=== PATIENT | female | born 1935 | race Caucasian/White ===

== ENCOUNTER 2016-12-02 14:47 | Inpatient (IN) ==
[2016-12-02] MEDS ORDERED: ALBUTEROL/IPRATROPIUM 3 ML NEB RESP TX STA (15:05)
--- NOTE | 2016-12-02 15:33 | XRay Report ---
Referring Physician: Michael Locke Exam: XR chest 1V portable Date: December 02, 2016 at 3:12 PM Reason: Shortness of breath Comparison: Chest one view portable September 02, 2016 Findings: The cardiac silhouette is again enlarged, and there is prominent calcified plaque at the aortic arch. The interstitial markings are diffusely prominent bilaterally, and there are opacities within the right mid and lower lung zones and within the left lower lung zone. This is concerning for pulmonary edema and atelectasis, but there could also be pneumonia. No pneumothorax is identified, but there is bilateral pleural fluid, which is likely mild on the left and moderate on the right. No acute osseous process is seen. Surgical clips are noted within the left upper abdomen. Impression: 1. Cardiomegaly. 2. The interstitial markings are diffusely prominent bilaterally, and there are opacities within both lungs, right greater than left. This is concerning for pulmonary edema and atelectasis, but there could also be pneumonia. 2. Bilateral pleural fluid, right greater than left. PROCEDURE INTERPRETED AT [facility] DEPARTMENT OF RADIOLOGY Final Report Signed by: Dr. Jeni Melton
[2016-12-02 15:37] LABS: Basophils # 0.1 10*3/uL (0.0-0.2); Basophils % 1.2 % (0.0-0.8); Eosinophils # 0.1 10*3/uL (0.0-0.87); Eosinophils % 1.7 % (0.00-10.9); Hematocrit 43.7 VOL% (35.7-47.0); Hemoglobin 14.6 GM/DL (12.0-16.0); Immature Granulocytes % 0.2 %; Immature Granulocytes Absolute 0.01 #; Lymphocytes # 2.2 10*3/uL (1.4-4.0); Lymphocytes % 37.7 % (21.3-54.2); Mean Corpuscular HGB Conc 33.4 GM/DL (32-36); Mean Corpuscular Hemoglobin 33 PG (27-34); Mean Corpuscular Volume 97.3 FL (87-102); Mean Platelet Volume 10.3 FL (9.6-12.0); Monocytes # 0.5 10*3/uL (0.11-0.8); Monocytes % 8.3 % (1.7-12.7); Neutrophils % 50.9 % (38.7-73.9); Platelet Count 181 T/CUMM (130-400); Red Blood Count 4.49 MC/CUMM (3.8-5.5); White Blood Count 5.8 T/CUMM (4-12)
[2016-12-02 16:02] LABS: Alanine Aminotransferase 13 U/L (13-56); Albumin 3.5 G/DL (3.4-5.0); Alkaline Phosphatase 51 U/L (45-117); Aspartate Amino Transferase 13 U/L (0-37); Blood Urea Nitrogen 12 MG/DL (7-18); Calcium 9.1 MG/DL (8.5-10.1); Glucose 90 MG/DL (74-106); Magnesium 1.9 MG/DL (1.8-2.4); Potassium 4.3 MMOL/L (3.5-5.1); Sodium 143 MMOL/L (136-145); Total Protein 6.2 G/DL (6.4-8.3); Troponin I Only < 0.015 NG/ML (0.00-0.045)
--- NOTE | 2016-12-02 16:26 | Emergency Department Note ---
Isaac Mack Gwan, am scribing for, and in the presence of, Michael Locke MD 15:13. Chucky Mack Phillip K, MD, personally performed the services described in this documentation, ascribed by Lisandra Gray in my presence, and it is both accurate and complete 626 . Arrival - Arrival Chief Complaint: Shortness of Breath Stated Complaint: MAY HAVE PNEUMONIA ED Nursing Triage Note: C/O SOB AND COUGING WHEN PT EXERTS HERSELF WITH ONSET ONE WEEK AGO. Mode of Arrival: Ambulatory Limitations: No Limitations Source: Patient, Family (Son ), Old Records Reviewed, RN Notes Reviewed - History of Present Illness HPI Narrative: Patient is a 80 y/o white female who presents to the ED with a c/o SOB and dry cough with an onset several months ago. Patient's son stated that pt was hospitalized in 07/2016 for several days due to pneumonia ans since her discharge she has been having SOB. Within the last 2 weeks, her SOB has worsened with minimal exertion, subjective fever and edema to bilateral LE prompting her visit to the ED for further evaluation. At time of triage, pt's temperature was 98.1. Son confirmed that pt is on home O2 and that she has a rescue inhaler. Son denies that pt has a nebulizer. Patient is followed by Dr. Stallings. No other problems/complaints reported in ED. Onset (ago): week(s) Consistency: constant Severity: moderate Date of Last Menstrual Period: HYST Allergies/Adverse Reactions: Allergies Allergy/AdvReac Type Severity Reaction Status Date / Time ampicillin Allergy Unknown/Unable Verified 08/19/16 18:16 to obtain Penicillins Allergy Unknown/Unable Verified 08/19/16 18:16 to obtain Home Medications: Home Medications Medication Instructions Recorded Confirmed Type Citalopram [CeleXA] 20 mg PO DAILY 08/20/16 12/02/16 History Methenamine Hippurate [Hiprex] 1 gm PO BID 08/20/16 12/02/16 History Apixaban [Eliquis] 2.5 mg PO BID 12/02/16 12/02/16 History Meclizine HCl 25 mg PO Q8H PRN 12/02/16 12/02/16 History Nebivolol HCl [Bystolic] 2.5 mg PO DAILY 12/02/16 12/02/16 History Review of System - Review of System 12 point system: reviewed and no additional remarkable complaints except as stated - Review of System Constitutional: Present: as per HPI, fever. Absent: chills, diaphoresis Eyes: Absent: discharge Head/Ears/Nose/Throat: Absent: earache Respiratory: Present: as per HPI, cough, other (shortness of breathe ) Cardiovascular: Absent: chest pain Gastrointestinal: Absent: abdominal pain, nausea, vomiting, diarrhea Genitourinary female: Absent: dysuria Musculoskeletal: Absent: arm pain, back pain, leg pain, neck pain Skin: Absent: rash, lesions Neurological: Absent: weakness Psychiatric: Absent: anxiety Medical,Surgical,& Family Hx - Medical History Cardio: History of: Hypertension Respiratory: History of: COPD, Obstructive Sleep Apnea Genitourinary: History of: Recurring Urinary Tract Infections Gastrointestinal: History of: GI Problems (chronic diarhhea) Reproductive: History of: Ovarian Cysts (reports removed in the past) - Surgical History Abdominal Surgeries: Surgical HX of: Abdominal Surgery (reports a tumor removed in the past) Reproductive Surgeries: Surgical HX of;: Hysterectomy Orthopedic Surgeries: Surgical HX of;: Total Knee Replacement (right) - Family History Family History: Reports;: Family Cancer (sisters- breast and ovarian cancer), Family Heart Disease (mother), Family Hypertension (mother), Family Stroke ( father) - Social History Smoking Status: Never smoker Frequency of Alcohol Use: None Type of Drug Use: None Exam Vital Signs: Vital Signs Temperature 98.1 F 12/02/16 16:18 Pulse Rate 76 12/02/16 16:18 Respiratory Rate 22 12/02/16 16:18 Blood Pressure 131/78 12/02/16 16:18 O2 Sat by Pulse Oximetry 94 L 12/02/16 14:50 - General General appearance: alert, in no apparent distress - Head Head exam: Present: atraumatic, normocephalic - Eye Eye exam: Present: normal appearance, PERRL, EOMI - ENT ENT exam: Present: normal oropharynx, mucous membranes moist, TM's normal bilaterally, normal external ear exam - Neck Neck exam: Present: full ROM, trachea midline. Absent: tenderness - Chest Chest inspection: Present: symmetric chest wall rise. Absent: tenderness - Respiratory Respiratory exam: Present: rales, other (decreased breathe sounds right base ) - Cardiovascular Cardiovascular exam: Present: regular rate, normal rhythm, normal heart sounds. Absent: murmur - Abdominal Exam Abdominal exam: Present: soft, normal bowel sounds. Absent: distention, tenderness - Extremities Exam Extremities exam: Present: full ROM, other (Trace edema bialteral LE) - Back Exam Back exam: Present: full ROM. Absent: tenderness - Neurological Exam Neurological exam: Present: alert, oriented X3, CN II-XII intact. Absent: motor sensory deficit - Psychiatric Psychiatric exam: Present: normal affect, normal mood - Skin Skin exam: Present: warm, dry, intact, normal color Course Course Narrative: Patient discussed with Dr. Stallings Results - Labs CBC & BMP: 12/02/16 15:18 12/02/16 15:18 Lab Results: I have reviewed the patients labs Labs: Laboratory Tests 12/02/16 12/02/16 15:18 15:18 WBC 5.8 RBC 4.49 Hgb 14.6 Hct 43.7 Plt Count 181 Baso % (Auto) 1.2 H Sodium 143 Potassium 4.3 Chloride 106 Carbon Dioxide 30 BUN 12 Creatinine 0.90 Total Bilirubin 1.30 H Total Protein 6.2 L - Diagnostic Findings Procedure: Chest x-ray: report reviewed by me (1. Cardiomegaly. 2. The interstitial markings are diffusely prominient bilaterally and there are opacities within both lungs, right greater than left. This is concerning for pulmonary edema and atelectasis, but there could also be pnuemonia. 2. Bilateral pleural fluid, right greater than left. ) Disposition Clinical Impression: Pneumonia right lower lobe, Pleural effusion, right, Possible congestive heart failure Case discussed with: patient Disposition: Still a Patient Condition: Guarded Additional Instructions: Admit to Dr. Stallings
[2016-12-02] MEDS ORDERED: ACETAMINOPHEN 325 MG TABLET PO PRN (16:44)
[2016-12-02] MEDS ORDERED: ONDANSETRON 4 MG/2 ML VIAL IV PRN (16:44)
[2016-12-02] MEDS ORDERED: ALBUTEROL/IPRATROPIUM 3 ML NEB RESP TX SCH (17:00)
[2016-12-02] MEDS ORDERED: LEVOFLOXACIN INJ 100 ML IV ONE (17:54)
[2016-12-02] MEDS: LEVOFLOXACIN INJ 500 MG in PREMIX 1 EACH IV SCH (17:57)
[2016-12-02] MEDS ORDERED: MECLIZINE 25 MG TABLET PO PRN (18:54)
[2016-12-02] MEDS ORDERED: methylPREDNISolone SOD SUC 40 MG/1 ML VIAL ONE (19:11)
[2016-12-02] MEDS: methylPREDNISolone SOD SUC 40 MG/1 ML VIAL IV SCH (19:15)
[2016-12-02] MEDS: ALBUTEROL/IPRATROPIUM 3 ML NEB RESP TX SCH (20:21)
[2016-12-02] MEDS: METHENAMINE HIPPURATE 1 GM TABLET PO SCH (20:52)
[2016-12-02] MEDS: APIXABAN 2.5 MG TABLET PO SCH (20:52)
[2016-12-02] MEDS: DESITIN 4OZ/NYSTATIN 15 GRAM MIXTURE PASTE TOP SCH (20:53)
[2016-12-02] MEDS: DOCUSATE SODIUM 100 MG CAPSULE PO SCH (20:53)
[2016-12-02] MEDS ORDERED: ENOXAPARIN 30 MG/0.3 ML SYRINGE SUBCUT SCH (21:00)
--- NOTE | 2016-12-02 21:46 | Family Practice History&Phys ---
Assessment and Plan (1) Cardiomegaly Status: Acute Assessment and plan: 12/02/2016 we will go ahead and get cardiology on board she has had this episode of shortness of breath and looks like she is in congestive heart failure to me is supposed to sarahi pneumonia. (Have a normal white count) Current Visit: Yes (2) Pleural effusion, right Status: Acute Assessment and plan: 12/02/2016: We will give her 20 mg Lasix in the morning early. Current Visit: Yes (3) COPD (chronic obstructive pulmonary disease) Status: Acute Assessment and plan: 12/02/2016: We are going to keep her on nebulizers and initiate some steroids low -dose. Current Visit: No (4) Right lower lobe pneumonia Status: Acute Assessment and plan: 12/02/2016: Although there is some right lower lobe haziness believe this is more associated with congestive heart failure Current Visit: No (5) UTI (urinary tract infection) Status: Acute Assessment and plan: 12/02/2016: We are going to start on Levaquin for presumptive pneumonia at this time this should cover UTI Current Visit: No History of Present Illness Chief complaint: Shortness of breath, fatigue History of present illness: Ms. Belle is a 80 year old female A primary patient of Dr. Eladio Stallings. Came into the emergency room with shortness of breath which started yesterday afternoon but got a little worse today. She was recently seen and admitted in the hospital several weeks ago with pneumonia. She also had cardiomegaly at that time. Today chest x-ray revealed a right lower lobe infiltrate/pulmonary edema with bilateral small pleural effusions. She has extremely large cardiomegaly on a portable chest x- ray. I do not see evidence that she has had an echocardiogram in the past and will plan 1 1 of these. She does have a history of COPD and is a remote smoker but stopped approximately 30 years ago. At this time she is mildly short of breath but oxygen is helping significantly. She is in no acute distress and denies any sarahi chest pain. Her BNP is slightly elevated at 555. Is admitted and will get cardiology consult in the morning Home Medications Medication Instructions Recorded Confirmed Type Citalopram [CeleXA] 20 mg PO DAILY 08/20/16 12/02/16 History Methenamine Hippurate [Hiprex] 1 gm PO BID 03/01/17 06/13/17 History Apixaban [Eliquis] 2.5 mg PO BID 12/02/16 12/02/16 History Meclizine HCl 25 mg PO Q8H PRN 12/02/16 12/02/16 History Nebivolol HCl [Bystolic] 2.5 mg PO DAILY 12/02/16 12/02/16 History Allergies Allergy/AdvReac Type Severity Reaction Status Date / Time ampicillin Allergy Unknown/Unable Verified 08/19/16 18:16 to obtain Penicillins Allergy Unknown/Unable Verified 08/19/16 18:16 to obtain 12 point system: reviewed and no additional remarkable complaints except as stated (No blurred vision or epic stasis. She denies any leg pain, hemoptysis or any abdominal pain.) Medical,Surgical,& Family Hx - Medical History Cardio: History of: Cardiac Dysrhythmia (AFIB), Hypertension Respiratory: History of: COPD, Obstructive Sleep Apnea Genitourinary: History of: Recurring Urinary Tract Infections Gastrointestinal: History of: GI Problems (chronic diarhhea) Reproductive: History of: Ovarian Cysts (reports removed in the past) - Surgical History Abdominal Surgeries: Surgical HX of: Abdominal Surgery (reports a tumor removed in the past) Reproductive Surgeries: Surgical HX of;: Hysterectomy Orthopedic Surgeries: Surgical HX of;: Total Knee Replacement (right) - Family History Family History: Reports;: Family Cancer (sisters- breast and ovarian cancer), Family Heart Disease (mother), Family Hypertension (mother), Family Stroke ( father) - Social History Smoking Status: Never smoker Frequency of Alcohol Use: None Type of Drug Use: None Exam - Constitutional Vitals: Period Temp Pulse Resp BP Sys/Jalloh Pulse Ox Last 24 Hr 96.0 F-98.1 F 68-81 17-22 127-131/73-78 80-100 Exam: Generally a very pleasant lady she is in no acute respiratory distress at this time is able to verbalize without difficulty. HEENT pupils are equally reactive to light neck is supple trachea midline Cardiovascular rate is slightly irregular there is a 1/6 systolic ejection murmur. Lungs basilar rales. No acute rhonchi however there are a few areas of wheezes Abdomen soft nondistended Extremities no clubbing cyanosis or edema and she has good bilateral pedal pulses Neurologically fully intact Results - Labs CBC & BMP: 12/02/16 15:18 12/02/16 15:18
[2016-12-03] MEDS: ALBUTEROL/IPRATROPIUM 3 ML NEB RESP TX SCH ×4 (00:21→19:40)
[2016-12-03] MEDS ORDERED: FUROSEMIDE 20 MG/2 ML VIAL IV ONE (05:00)
[2016-12-03] MEDS: methylPREDNISolone SOD SUC 40 MG/1 ML VIAL IV SCH ×3 (05:16→21:17)
[2016-12-03] MEDS ORDERED: FUROSEMIDE 20 MG TABLET PO ONE (08:59)
[2016-12-03] MEDS ORDERED: NON-FORMULARY MEDICATION (Nebivolol Hcl [Bystolic] 2.5 MG) PO SCH (09:00)
[2016-12-03] MEDS ORDERED: CITALOPRAM 20 MG TABLET PO SCH (09:00)
[2016-12-03] MEDS: CITALOPRAM 20 MG TABLET PO SCH (09:02)
[2016-12-03] MEDS: NEBIVOLOL 5 MG TABLET PO SCH (09:02)
[2016-12-03] MEDS: PANTOPRAZOLE 40 MG TABLET PO SCH (09:02)
[2016-12-03] MEDS: DESITIN 4OZ/NYSTATIN 15 GRAM MIXTURE PASTE TOP SCH ×2 (09:02→21:21)
[2016-12-03] MEDS: DOCUSATE SODIUM 100 MG CAPSULE PO SCH ×2 (09:02→21:17)
[2016-12-03] MEDS: APIXABAN 2.5 MG TABLET PO SCH ×2 (09:02→21:17)
[2016-12-03] MEDS: METHENAMINE HIPPURATE 1 GM TABLET PO SCH ×2 (09:02→21:17)
--- NOTE | 2016-12-03 15:28 | ECHO Report ---
Porsche Belle Exam Date: 12/03/2016 09:15 Referring Physician: Technologist: makayla Krishnamurthy ARDMS, RVT Age: 80 Ht (in): 65 Wt (lb): 148 Gender: F Exam Location: [facility] Echo Indications: Shortness of breath, Cardiomegaly, Pneumonia, UTI, CHF, Pleural effusion, not elsewhere classified, COPD BP: 112 / 74 HR: 81 Rhythm: Sinus Technical Quality: Fair IMPRESSIONS 1. Left ventricle is normal size and systolic function with an ejection fraction of 55%. There is mild concentric left ventricular hypertrophy and at least some element of diastolic dysfunction present. 2. Right ventricle, right atrium and left atrium are moderately severely dilated. 3. Mitral valve is somewhat thickened with mitral annular calcification. Moderate to severe mitral regurgitation is present. 4. Sclerotic aortic valve without evidence for significant stenosis, mild regurgitation is present. 5. Moderate to severe tricuspid valve regurgitation. 6. Moderate to severely elevated right-sided pressures. MEASUREMENTS (Male / Female) Normal Values 2D ECHO LV Diastolic Diameter PLAX 3.9 cm 4.2 - 5.9 / 3.9 - 5.3 cm LV Systolic Diameter PLAX 3.0 cm LV Fractional Shortening PLAX 23.8 % IVS Diastolic Thickness 1.3 cm 0.6 - 1.0 / 0.6 - 0.9 cm LVPW Diastolic Thickness 1.3 cm 0.6 - 1.0 / 0.6 - 0.9 cm RV Internal Dim ED PLAX 4.6 cm Aortic Root Diameter 3.7 cm LA Systolic Diameter LX 5.8 cm 3.0 - 4.0 / 2.7 - 3.8 cm DOPPLER TR Peak Velocity 358.0 cm/s TR Peak Gradient 51.3 mmHg FINDINGS Left Ventricle Normal left ventricular cavity size. Mild left ventricular hypertrophy. Left ventricular ejection fraction is estimated at 55%. Probably diastolic dysfunction present. Right Ventricle Severely increased right ventricular size. Right Atrium Severely increased right atrial size. Left Atrium Severely increased left atrial size. Mitral Valve Mildly thickened mitral valve with mitral annular calcification especially posteriorly. Moderate possibly severe mitral valve regurgitation. Aortic Valve Aortic valve tricuspid structure with sclerosis without stenosis. Mild aortic valve regurgitation. Tricuspid Valve Morphologically normal tricuspid valve. Moderate to severe tricuspid valve regurgitation. Tricuspid regurgitation velocities suggest a PAP of 61 mmHg. Pulmonic Valve Morphologically normal pulmonic valve without significant stenosis. There is no pulmonic regurgitation. Pericardium Normal pericardium without effusion. Aorta Normal ascending aorta dimension. Flavio Leija MD (Electronically Signed) Final Date: 03 December 2016 15:27
--- NOTE | 2016-12-03 16:00 | Cardiology Consult Note ---
I, Nina Mckeon RN, am scribing for, and in the presence of, Flavio Leija MD 15:52. Assessment and Plan - Time spent with patient Time spent with patient: Greater than 30 minutes (Due to assessment, planning, documentation, medication review) (1) Congestive heart failure Status: Acute Assessment and plan: I think there is some chronic element that has been progressive. The patient's chest x-rays reveal progressive right pleural effusion. Current Visit: Yes (2) Cardiomegaly Status: Chronic Assessment and plan: This is secondary to right atrial, left atrial and right ventricular enlargement. Current Visit: Yes (3) Right lower lobe pneumonia Status: Acute Assessment and plan: She has been initiated on treatment for pneumonia by primary service. Question how much of this is from her heart disease versus true pneumonia. Current Visit: No (4) Pleural effusion, right Status: Acute Assessment and plan: Per chest x-ray, this is mild to moderate. This is progressive since chest x- rays earlier this year. Current Visit: Yes (5) Hypertension Status: Chronic Assessment and plan: Overall, pressures are well controlled at this time. Continue current regimen. Current Visit: Yes (6) History of pulmonary embolus (PE) Status: Chronic Assessment and plan: History of PE in the remote past, 2004. CT of the chest in August for shortness of breath and chest pain with no definitive pulmonary embolus. CT of chest did show bullous emphysema with small to moderate right pleural effusion and small left pleural effusion. Current Visit: Yes (7) Atrial fibrillation Status: Chronic Assessment and plan: Apparently new onset in August 2016. She is anticoagulated for stroke prevention with low-dose Eliquis. Need ECG Current Visit: Yes (8) COPD (chronic obstructive pulmonary disease) Status: Chronic Assessment and plan: This appears to be stable at this time. Patient does use continuous O2 at home. Current Visit: No (9) Nonrheumatic mitral valve regurgitation Status: Chronic Assessment and plan: This is moderate to severe and certainly may be contributing to her other clinical findings. Current Visit: Yes (10) Nonrheumatic tricuspid valve regurgitation Status: Acute Assessment and plan: This is moderate to severe. Current Visit: Yes (11) Pulmonary hypertension Status: Acute Assessment and plan: This is moderate to severe. This may be secondary valve disease but she has a history of have some chronic lung disease. Current Visit: Yes History of Present Illness - Data of Consult Patient: known to practice within the last 3 years Consult date: 12/03/16 Requesting Physician: Lefty Adams Primary care physician: Eladio Stallings - Consult Narrative Reason for consult: CHF, cardiomegaly History of present illness: PRIMARY CHEMICAL INSTRUMENTATION OFFICER: DR. MOY Ms. Belle is a 80 year old white female with risk factors significant for: Age, hypertension, sedentary lifestyle, family history of CAD, and she is a former smoker. Past medical history includes COPD, recurrent UTI, and she was recently diagnosed with atrial fibrillation in August 2016 during hospital admission to [facility] for pneumonia when she presented with atypical chest pain. She also has a history of pulmonary embolus in 2004 at which time she was started on Coumadin, but Coumadin was discontinued in 2012 after a fall and reported intracerebral hemorrhage. She was last seen by Dr. Marks as outpatient at [facility] clinic on November 10 for routine follow-up. She is chronically dyspneic on exertion, but this had not recently worsened in severity. She does use continuous oxygen at home, and she was complaining of some vertigo at the time as she had recently run out of oxygen for a brief period. Patient was not having any chest pain or tightness, orthopnea, PND, lower extremity edema. 2D echocardiogram in August 2016 revealed LV ejection fraction of 65%, mild to moderate LVH, mild MR and TR with PA pressure 39 mmHg. At follow-up visit in clinic, patient was having no bleeding problems on low-dose Eliquis. Patient presented to [facility] ED on the afternoon of December 02 with complaints of shortness of breath and a dry "hacking" cough with onset 6 months ago. Chest x-ray revealed cardiomegaly, bilateral and diffuse interstitial markings within both lungs, with the right greater than the left, and was concerning for pulmonary edema/atelectasis versus pneumonia. Also has bilateral pleural effusion slightly greater on the right than the left. Patient has been admitted to [facility] floor for treatment of right lower lobe pneumonia, right pleural effusion, and cardiology has now been asked to see for possible CHF. Patient reports that over the past week, her dyspnea on exertion has worsened with minimal activity. She reports she also noticed some increasing edema to her bilateral lower extremities with the left greater than the right, and this prompted her visit for further evaluation. She tells me that it is a short distance between her kitchen and living room, and ambulating from one room to another recently, she is easily extremely fatigued and is requiring increased rest breaks. She uses a walker to ambulate. Denies experiencing any chest pain or tightness with this. Denies diaphoresis, nausea or vomiting, or other anginal complaint. Admits nonproductive cough, subjective fever. No chills, abdominal pain, change in bowel habit, bright red bleeding, or dark stool. No hemoptysis, hematuria, epistaxis. During exam, she is not having any chest pain or shortness of breath, and does not appear to be in any acute distress. Her son is present at bedside with her. BP 115/66. Heart rate 80s and irregular. Supplemental oxygen via nasal cannula 2L/NC with oxygen saturation levels mid to upper 90s. Labs reviewed. WBC 5800. H&H stable 14.6/43.7. Potassium 4.3. Magnesium 1.9. Troponin level normal. Mildly elevated BNP 555. Echocardiogram reveals the left ventricular ejection fraction to be normal. There is moderate to severe tricuspid and mitral valve regurgitation. There is significant enlargement of the left atrium, right atrium and right ventricle. There is sclerotic aortic valve but without significant hemodynamic abnormalities. In comparison to echocardiogram carried out August 2016 patient had what is defined is less mitral valve and tricuspid valve regurgitation but on review there was significant at that time. It should be noted this patient now has 2 charts. We will need to have this blended. In review of the patient's chest x-rays over the last few months she has had some progressive right pleural effusion. CC: Lefty Adams, DO - Home Medications and Allergies Home Medications: Home Medications Medication Instructions Recorded Confirmed Type Citalopram [CeleXA] 20 mg PO DAILY 08/20/16 12/02/16 History Methenamine Hippurate [Hiprex] 1 gm PO BID 08/20/16 12/02/16 History Apixaban [Eliquis] 2.5 mg PO BID 12/02/16 12/02/16 History Meclizine HCl 25 mg PO Q8H PRN 12/02/16 12/02/16 History Nebivolol HCl [Bystolic] 2.5 mg PO DAILY 12/02/16 12/02/16 History Allergies/Adverse Reactions: Allergies Allergy/AdvReac Type Severity Reaction Status Date / Time ampicillin Allergy Unknown/Unable Verified 08/19/16 18:16 to obtain Penicillins Allergy Unknown/Unable Verified 08/19/16 18:16 to obtain - Constitutional Constitutional: Present: fatigue, weakness. Absent: fever(s), frequent falls, weight gain, weight loss - EENT Eyes: Absent: blurry vision, loss of vision Ears: Present: decreased hearing Nose, mouth and throat: Absent: dysphagia, nasal congestion, neck pain, sinus pressure, throat swelling - Cardiovascular Cardiovascular: Present: dyspnea on exertion. Absent: chest pain at rest, chest pain with activity, dyspnea, edema, radiating jaw, neck or arm pain, lightheadedness, orthopnea, palpitations, PND - Respiratory Respiratory: Present: cough, dyspnea on exertion. Absent: dyspnea, hemoptysis, wheezing, change in phlegm color - Gastrointestinal Gastrointestinal: Absent: abdominal pain, constipation, diarrhea, dysphagia, melena, nausea, vomiting, jaundice - Genitourinary Genitourinary: Absent: dysuria, flank pain, hematuria - Musculoskeletal Musculoskeletal: Present: arthralgias - Neurological Neurological: Present: abnormal gait. Absent: abnormal speech, confusion, dizziness, syncope - Psychiatric Psychiatric: Absent: anxiety, depression - Endocrine Endocrine: Absent: cold intolerance, heat intolerance - Hematologic/Lymphatic Hematologic/Lymphatic: Absent: easy bleeding, easy bruising Medical,Surgical,& Family Hx - Medical History Cardio: History of: Cardiac Dysrhythmia (AFIB), CHF, Hypertension Psychological: History of: Anxiety Disorders, Depression Neurology: History of: Vertigo No history of: Seizures, TIA Endocrine: No history of: Diabetes Mellitus (IDDM), Diabetes Mellitus (NIDDM), Dyslipidemia, Thyroid Disorder Respiratory: History of: COPD, Pulmonary Hypertension Genitourinary: History of: Recurring Urinary Tract Infections Gastrointestinal: History of: GI Problems (chronic diarhhea) Reproductive: History of: Ovarian Cysts (reports removed in the past) Other: No history of: Cancer - Surgical History Abdominal Surgeries: Surgical HX of: Abdominal Surgery (reports a tumor removed in the past) Reproductive Surgeries: Surgical HX of;: Hysterectomy Orthopedic Surgeries: Surgical HX of;: Total Knee Replacement (right) - Family History Family History: Reports;: Family Cancer (sisters- breast and ovarian cancer), Family Heart Disease (mother), Family Hypertension (mother), Family Stroke ( father) - Social History Smoking Status: Former smoker Frequency of Alcohol Use: None Type of Drug Use: None Physical Examination Vital Signs Temp Pulse Resp BP Pulse Ox 98.1 F 76 22 131/78 94 L 12/02/16 14:50 12/02/16 14:50 12/02/16 14:50 12/02/16 14:50 12/02/16 14:50 General: Present: No Apparent Distress, Other (Elderly, pleasant and cooperative.) HEENT: Present: PERRL, Normocephaly. Absent: Pallor Neck: Present: Supple Neck, Midline Trachea, No Masses, No Bruit Cardiac: Present: Irregularly Regular, No Murmur. Absent: Tachycardia, Bradycardia Lungs: Present: Decreased Breath Sounds (Right lower lobe), Rales - Left, Oxygen , No Wheezes, No Rhonchi Neuro: Present: Grossly Intact, Other (Slight vocal tremor). Absent: Numbness, Tingling, Essential Tremor Abdomen: Present: Soft, Active Bowel Sounds. Absent: Ascites, Tender, Firm, Distended Skin: Present: Clear. Absent: Rash, Suspicious Lesions Extremities: Present: No Clubbing, No Cyanosis, Normal Upper Extr. Pulses (3+ bilaterally), Normal Lower Extr. Pulses (2+ bilaterally), Edema (Minimal to trace pretibial edema, left lower extremity greater than right lower extremity.) , Capillary Refill (Normal) Result/EKG - Labs CBC & BMP: 12/02/16 15:18 12/02/16 15:18 Lab Results: I have reviewed the past 24 hour labs Labs: Laboratory Results - last 24 hr 12/02/16 12/02/16 12/02/16 15:18 15:18 15:18 WBC 5.8 RBC 4.49 Hgb 14.6 Hct 43.7 MCV 97.3 MCH 33 MCHC 33.4 RDW 15.0 Plt Count 181 MPV 10.3 Neut % (Auto) 50.9 Lymph % (Auto) 37.7 [place] % (Auto) 8.3 Eos % (Auto) 1.7 Baso % (Auto) 1.2 H Neut # (Auto) 3.0 Lymph # (Auto) 2.2 [place] # (Auto) 0.5 Eos # (Auto) 0.1 Baso # (Auto) 0.1 Immature Gran % 0.2 Nucleated RBC % 0.0 Immature Gran # 0.01 Nucleated RBCs # 0.00 Sodium 143 Potassium 4.3 Chloride 106 Carbon Dioxide 30 Anion Gap 11.3 BUN 12 Creatinine 0.90 GFR Calculation 61 BUN/Creatinine Ratio 13.00 Glucose 90 Calculated Osmolality 284.0 Lactic Acid Calcium 9.1 Magnesium 1.9 Total Bilirubin 1.30 H AST 13 ALT 13 Alkaline Phosphatase 51 Troponin I < 0.015 B-Natriuretic Peptide 555 H Total Protein 6.2 L Albumin 3.5 Globulin 2.7 Albumin/Globulin Ratio 1.2 12/02/16 16:56 WBC RBC Hgb Hct MCV MCH MCHC RDW Plt Count MPV Neut % (Auto) Lymph % (Auto) [place] % (Auto) Eos % (Auto) Baso % (Auto) Neut # (Auto) Lymph # (Auto) [place] # (Auto) Eos # (Auto) Baso # (Auto) Immature Gran % Nucleated RBC % Immature Gran # Nucleated RBCs # Sodium Potassium Chloride Carbon Dioxide Anion Gap BUN Creatinine GFR Calculation BUN/Creatinine Ratio Glucose Calculated Osmolality Lactic Acid 1.2 Calcium Magnesium Total Bilirubin AST ALT Alkaline Phosphatase Troponin I B-Natriuretic Peptide Total Protein Albumin Globulin Albumin/Globulin Ratio - Diagnostic Findings Procedure: Chest x-ray: image reviewed by me, report reviewed by me, CT - chest : image reviewed by me, report reviewed by me - EKG EKG results: interpreted by me, no acute changes EKG shows: atrial fibrillation Heladio Mack John Timothy, MD, personally performed the services described in this documentation, ascribed by Nina Mckeon RN in my presence, and it is both accurate and complete [id number] .
[2016-12-03] MEDS: LEVOFLOXACIN INJ 500 MG in PREMIX 1 EACH IV SCH (16:48)
--- NOTE | 2016-12-03 17:42 | EKG Report ---
Stationary ECG Study [facility] Test Date: 12/03/2016 5:43:27 PM Pat Name: LAURY HESTER Department: Room: 225 Gender: F Manager Storage: CARROLL CARRASCO : 1935 Requested by: Flavio Alegria Order Number: [id number] Reading MD: SARATH ROBERTS Intervals [place] Rate: 81 P: 999 UT: 0 QRS: 66 QRSD: 108 T: -38 QT: 406 QTc: 444 Interpretive Statements ATRIAL FIBRILLATION WITH ABERRANT CONDUCTION OR VENTRICULAR PREMATURE COMPLEXES LOW QRS VOLTAGE IN EXTREMITY LEADS NONSPECIFIC T-WAVE ABNORMALITY Electronically Signed On 12-05-16 14:08:27 CDT by SARATH ROBERTS [email or web address]
--- NOTE | 2016-12-03 20:54 | Family Practice Progress Note ---
Family Practice - PN: Subj Interval history: Patient seen this morning. She is doing some better. Less shortness of breath. Appreciate cardiology consult and direction in this case. Does appear through the echocardiogram that she is got significant mitral left and right regurgitation and tricuspid regurg as well with enlarged atria and right ventricle. She is bringing some easier. I attempted to give her Lasix early this morning and the nurses said she refused it. We are starting it now per cardiology direction and hopefully patient will agree. She is alert and oriented and breathing significantly easier as noted Exam (Progress Note) - Constitutional Vitals: Period Temp Pulse Resp BP Sys/Jalloh Pulse Ox Last 24 Hr 96.8 F-99.5 F 72-86 16-20 105-141/60-82 91-98 Exam: Generally a very pleasant lady she is in no acute respiratory distress at this time is able to verbalize without difficulty. HEENT pupils are equally reactive to light neck is supple trachea midline Cardiovascular rate is slightly irregular there is a 1/6 systolic ejection murmur. Lungs basilar rales. No acute rhonchi however there are a few areas of wheezes. Does seem to be breathing easier with the nebulizers and steroids Abdomen soft nondistended Extremities no clubbing cyanosis or edema and she has good bilateral pedal pulses Neurologically fully intact Results - Labs CBC & BMP: 12/02/16 15:18 12/02/16 15:18 Assessment and Plan (1) Cardiomegaly Status: Chronic Assessment and plan: 12/02/2016 we will go ahead and get cardiology on board she has had this episode of shortness of breath and looks like she is in congestive heart failure to me is supposed to sarahi pneumonia. (Have a normal white count) 12/03/2016: Appreciate cardiology's assistance on the case. Hopefully Lasix will also Lotrisone and help with the pleural effusions Current Visit: Yes (2) Pleural effusion, right Status: Acute Assessment and plan: 12/02/2016: We will give her 20 mg Lasix in the morning early. Current Visit: Yes (3) COPD (chronic obstructive pulmonary disease) Status: Chronic Assessment and plan: 12/02/2016: We are going to keep her on nebulizers and initiate some steroids low -dose. 12/03/2016 we will taper the steroids at this time Current Visit: No (4) Right lower lobe pneumonia Status: Acute Assessment and plan: 12/02/2016: Although there is some right lower lobe haziness believe this is more associated with congestive heart failure 12/03/2016: We will check CBC tomorrow if white count is normal will discontinue Levaquin Current Visit: No (5) UTI (urinary tract infection) Status: Acute Assessment and plan: 12/02/2016: We are going to start on Levaquin for presumptive pneumonia at this time this should cover UTI Current Visit: No
[2016-12-04] MEDS: ALBUTEROL/IPRATROPIUM 3 ML NEB RESP TX SCH ×4 (01:25→19:30)
[2016-12-04 05:37] LABS: Basophils % 0.1 % (0.0-0.8); Hematocrit 38.5 VOL% (35.7-47.0); Immature Granulocytes % 1.4 %; Immature Granulocytes Absolute 0.21 #; Lymphocytes # 0.8 10*3/uL (1.4-4.0); Mean Corpuscular HGB Conc 33.8 GM/DL (32-36); Mean Corpuscular Hemoglobin 32 PG (27-34); Mean Platelet Volume 10.6 FL (9.6-12.0); Monocytes # 0.4 10*3/uL (0.11-0.8); Monocytes % 2.3 % (1.7-12.7); Neutrophils # 13.8 10*3/uL (1.4-7.4); Neutrophils % 91.2 % (38.7-73.9); Platelet Count 138 T/CUMM (130-400); Red Blood Count 4.01 MC/CUMM (3.8-5.5); Red Cell Distribution Width 15.3 % (9.3-17.3); White Blood Count 15.1 T/CUMM (4-12)
[2016-12-04] MEDS: methylPREDNISolone SOD SUC 40 MG/1 ML VIAL IV SCH (05:40)
[2016-12-04 05:58] LABS: Band Neutrophils 1 % (0-10); Lymphocytes 8 % (20-55); Platelet Estimate Normal; Segmented Neutrophils 88 % (50-85); Total Cells Counted 100
[2016-12-04 05:59] LABS: Hypochromasia 1+; Ovalocytes Slight
[2016-12-04 06:03] LABS: Calcium 9.6 MG/DL (8.5-10.1)
--- NOTE | 2016-12-04 08:35 | Family Practice Progress Note ---
Family Practice - PN: Subj Interval history: Patient is stable at present up cleaning self. Her shortness of breath has improved somewhat. Does have a slightly elevated white count but this may be due to steroids. She is afebrile. (Will decrease steroid dose) oxygen sats are 97% at present. The patient is not having abdominal pain or leg swelling. Appreciate cardiology services on this case Exam (Progress Note) - Constitutional Vitals: Period Temp Pulse Resp BP Sys/Jalloh Pulse Ox Last 24 Hr 96.8 F-98.6 F 71-86 20-20 101-141/61-82 92-99 Exam: Generally in no acute respiratory distress at this time is able to verbalize without difficulty. HEENT pupils are equally reactive to light neck is supple trachea midline Cardiovascular rate is slightly irregular there is a 1/6 systolic ejection murmur. Lungs basilar rales. No acute rhonchi. Does seem to be breathing easier with the nebulizers and steroids, plan decreasing steroid dose Abdomen soft nondistended Extremities no clubbing cyanosis or edema and she has good bilateral pedal pulses Neurologically fully intact Results - Labs CBC & BMP: 12/04/16 05:21 12/04/16 05:21 Assessment and Plan (1) Cardiomegaly Status: Chronic Assessment and plan: 12/02/2016 we will go ahead and get cardiology on board she has had this episode of shortness of breath and looks like she is in congestive heart failure to me is supposed to sarahi pneumonia. (Have a normal white count) 12/03/2016: Appreciate cardiology's assistance on the case. Hopefully Lasix will also Lotrisone and help with the pleural effusions 12/04/2016: We will look for advice regarding direction. She apparently does have fairly poor bowel functioning and her heart Current Visit: Yes (2) Pleural effusion, right Status: Acute Assessment and plan: 12/02/2016: We will give her 20 mg Lasix in the morning early. Current Visit: Yes (3) COPD (chronic obstructive pulmonary disease) Status: Chronic Assessment and plan: 12/02/2016: We are going to keep her on nebulizers and initiate some steroids low -dose. 12/03/2016 we will taper the steroids at this time 12/04/2016: We are stable at this time are tapering steroid Current Visit: No (4) Right lower lobe pneumonia Status: Acute Assessment and plan: 12/02/2016: Although there is some right lower lobe haziness believe this is more associated with congestive heart failure 12/03/2016: We will check CBC tomorrow if white count is normal will discontinue Levaquin 12/04/2016 will probably DC antibiotics today if patient continues to stay well and without fever Current Visit: No (5) UTI (urinary tract infection) Status: Acute Assessment and plan: 12/02/2016: We are going to start on Levaquin for presumptive pneumonia at this time this should cover UTI Current Visit: No
[2016-12-04] MEDS: methylPREDNISolone SOD SUC 125 MG/2 ML VIAL IV SCH (08:50)
[2016-12-04] MEDS: LOSARTAN 25 MG TABLET PO SCH (08:51)
[2016-12-04] MEDS: METHENAMINE HIPPURATE 1 GM TABLET PO SCH ×2 (08:51→20:44)
[2016-12-04] MEDS: DOCUSATE SODIUM 100 MG CAPSULE PO SCH ×2 (08:51→20:45)
[2016-12-04] MEDS: APIXABAN 2.5 MG TABLET PO SCH ×2 (08:51→20:44)
[2016-12-04] MEDS: NEBIVOLOL 5 MG TABLET PO SCH (08:51)
[2016-12-04] MEDS: CITALOPRAM 20 MG TABLET PO SCH (08:51)
[2016-12-04] MEDS: FUROSEMIDE 20 MG TABLET PO SCH (08:52)
[2016-12-04] MEDS: PANTOPRAZOLE 40 MG TABLET PO SCH (08:52)
[2016-12-04] MEDS: DESITIN 4OZ/NYSTATIN 15 GRAM MIXTURE PASTE TOP SCH ×2 (08:52→20:45)
--- NOTE | 2016-12-04 09:58 | Cardiology Progress Note ---
Assessment and Plan (1) Congestive heart failure Status: Acute Assessment and plan: I think there is some chronic element that has been progressive. The patient's chest x-rays reveal progressive right pleural effusion. Much of this may be related to her valvular heart disease. Current Visit: Yes (2) Cardiomegaly Status: Chronic Assessment and plan: This is secondary to right atrial, left atrial and right ventricular enlargement. Current Visit: Yes (3) Right lower lobe pneumonia Status: Acute Assessment and plan: She has been initiated on treatment for pneumonia by primary service. Question how much of this is from her heart disease versus true pneumonia. Current Visit: No (4) Pleural effusion, right Status: Acute Assessment and plan: Per chest x-ray, this is mild to moderate. This is progressive since chest x- rays earlier this year. Hopefully this will respond to treatment both antibiotics as well as diuresis. We have increased her Lasix if needed Current Visit: Yes (5) Hypertension Status: Chronic Assessment and plan: Overall, pressures are well controlled at this time. Continue current regimen. We will have to monitor her blood pressures know her treatment. Current Visit: Yes (6) Atrial fibrillation Status: Chronic Assessment and plan: Apparently new onset in August 2016. She is anticoagulated for stroke prevention with low-dose Eliquis. Atrial fibrillation ECG continues to reveal atrial fibrillation Current Visit: Yes (7) COPD (chronic obstructive pulmonary disease) Status: Chronic Assessment and plan: This appears to be stable at this time. Patient does use continuous O2 at home. Current Visit: No (8) Nonrheumatic mitral valve regurgitation Status: Chronic Assessment and plan: This is moderate to severe and certainly may be contributing to her other clinical findings. Current Visit: Yes (9) Nonrheumatic tricuspid valve regurgitation Status: Acute Assessment and plan: This is moderate to severe. Current Visit: Yes (10) Pulmonary hypertension Status: Acute Assessment and plan: This is moderate to severe. This may be secondary valve disease but she has a history of have some chronic lung disease. Current Visit: Yes (11) History of pulmonary embolus (PE) Status: Chronic Assessment and plan: This apparently is stable. Current Visit: Yes Cardiology - PN: Subj Interval history: Patient generally doing well today. She feels better had a good night. She is not short of breath. She has been walking around the room. As noted yesterday her echocardiogram in August of this year prior revealed last mitral valve regurgitation and tricuspid valve regurgitation appreciated now. She is tolerating her medications at this time. We will continue her treatment. I have encouraged her and her son to have her out walking more to see how she feels. She does well tomorrow she may can be discharged to follow- up as an outpatient. She can follow-up with Dr. Banerjee in a week. Exam (Progress Note) - Constitutional Vitals: Period Temp Pulse Resp BP Sys/Jalloh Pulse Ox Last 24 Hr 96.8 F-98.6 F 71-95 16-22 100-141/51-82 91-99 Exam: General appearance: normal weight, no acute distress, she is sitting up in a chair. HEENT exam: normal inspection, atraumatic Neck exam: normal inspection no JVD. No carotid bruit. Trachea is in midline Respiratory/lungs exam: clear to auscultation bilaterally good air movement. Cardiovascular exam: regular rate with slightly irregular rhythm with her atrial fibrillation; no murmur or gallop or rub. No precordial lift. Chest wall exam: nontender GI/Abdominal exam: normal bowel sounds, soft, nontender, no abdominal bruits or pulsatile masses. Extremeties/musculoskeletal: normal inspection without edema or cyanosis. Neurological exam: alert, oriented X3, no focal deficits Psychiatric exam: normal affect, normal mood. Cognitive function is grossly normal. Skin exam: normal color, warm Result/EKG - Labs CBC & BMP: 12/04/16 05:21 12/04/16 05:21 Lab Results: I have reviewed the past 24 hour labs (White count is noted to be elevated with similar left shift but this may be secondary to her steroids.) Labs: Laboratory Results - last 24 hr 12/04/16 12/04/16 05:21 05:21 WBC 15.1 H D RBC 4.01 Hgb 13.0 Hct 38.5 MCV 96.0 MCH 32 MCHC 33.8 RDW 15.3 Plt Count 138 D MPV 10.6 Neut % (Auto) 91.2 H Lymph % (Auto) 5.0 L [place] % (Auto) 2.3 Eos % (Auto) 0.0 Baso % (Auto) 0.1 Neut # (Auto) 13.8 H Lymph # (Auto) 0.8 L [place] # (Auto) 0.4 Eos # (Auto) 0.0 Baso # (Auto) 0.0 Total Counted 100 Immature Gran % 1.4 Nucleated RBC % 0.0 Immature Gran # 0.21 Segmented Neutrophils 88 H Band Neutrophils 1 Lymphocytes 8 L Monocytes 3 Nucleated RBCs # 0.00 Platelet Estimate Normal Hypochromasia 1+ Ovalocytes Slight Morphology Comment Sodium 143 Potassium 4.0 Chloride 106 Carbon Dioxide 27 Anion Gap 14.0 BUN 18 Creatinine 0.80 GFR Calculation 70 BUN/Creatinine Ratio 22.00 H Glucose 155 H Calculated Osmolality 289.0 Calcium 9.6 Magnesium 2.0
[2016-12-04] MEDS: LEVOFLOXACIN INJ 500 MG in PREMIX 1 EACH IV SCH (17:24)
[2016-12-05] MEDS: ALBUTEROL/IPRATROPIUM 3 ML NEB RESP TX SCH ×2 (00:41→07:45)
[2016-12-05 07:45] VITALS: BP 109/69
[2016-12-05] MEDS: methylPREDNISolone SOD SUC 125 MG/2 ML VIAL IV SCH (08:46)
[2016-12-05] MEDS: DOCUSATE SODIUM 100 MG CAPSULE PO SCH (08:46)
[2016-12-05] MEDS: FUROSEMIDE 20 MG TABLET PO SCH (08:46)
[2016-12-05] MEDS: METHENAMINE HIPPURATE 1 GM TABLET PO SCH (08:46)
[2016-12-05] MEDS: CITALOPRAM 20 MG TABLET PO SCH (08:46)
[2016-12-05] MEDS: APIXABAN 2.5 MG TABLET PO SCH (08:46)
[2016-12-05] MEDS: PANTOPRAZOLE 40 MG TABLET PO SCH (08:46)
[2016-12-05] MEDS: LOSARTAN 25 MG TABLET PO SCH (08:46)
[2016-12-05] MEDS: NEBIVOLOL 5 MG TABLET PO SCH (08:46)
[2016-12-05] MEDS: DESITIN 4OZ/NYSTATIN 15 GRAM MIXTURE PASTE TOP SCH (08:47)
--- NOTE | 2016-12-05 08:47 | Discharge Summary ---
Hospital Course - Hospital Course Hospital Course: Patient came in with some shortness of breath with what appeared to be possible pneumonia, pleural effusion with cardiomegaly on chest x-ray. Does have a history of COPD and is on chronic oxygen at home. However, she was getting increasingly dyspneic. She did have slight elevation of her BNP at 555. Because of her history and the fact that she did have cardiomegaly one-handed echocardiogram which revealed a fairly normal ejection fraction but she has severe mitral regurg and also severely enlarged left and right atrium as well as right ventricle. She was in some mild pulmonary edema. Cardiology consult was obtained and was treated medically. I do not feel that she is a very good candidate for valvular surgery and we will try to do will can from a medical standpoint. I do appreciate the assistance with loan and credit manager. She is much better today and we will discharge her home on home O2 and other medications that have been added to try to quell her symptoms. Diagnosis - Discharge Diagnosis (1) Cardiomegaly Status: Chronic (2) Pleural effusion, right Status: Acute (3) COPD (chronic obstructive pulmonary disease) Status: Chronic (4) Right lower lobe pneumonia Status: Acute (5) UTI (urinary tract infection) Status: Acute Specialty Discharge - Follow Up or Referrals Follow up with: Flavio Leija MD [Physician] - 12/18/16 9:10 am Lefty Adams DO [Physician] - 1 Month Discharge Plan - Discharge Data Disposition: Disch To Home/Self Care Condition at Discharge: Stable Discharge Diet: advance to your usual diet, heart healthy Activity: increase activity as tolerated Hygiene: no restrictions Weight Bearing at Discharge: full weight bearing Driving: no restrictions Contact your physician if you experience:: fever over 101, Shortness of breath - Discharge Medications New Furosemide Tab [Lasix Tab] 20 mg PO DAILY #30 tablet Losartan [Cozaar] 25 mg PO DAILY #30 tablet predniSONE TAB [PredniSONE] 10 mg PO DIRECTED #20 tablet Continue Citalopram [CeleXA] 20 mg PO DAILY Apixaban [Eliquis] 2.5 mg PO BID Methenamine Hippurate [Hiprex] 1 gm PO BID Nebivolol HCl [Bystolic] 2.5 mg PO DAILY Meclizine HCl 25 mg PO Q8H PRN PRN Reason: Dizziness - Follow Up or Referral Follow Up: Flavio Leija MD [Physician] - 12/18/16 9:10 am Lefty Adams DO [Physician] - 1 Month - Forms/Instructions Exam - Constitutional Vitals: Period Temp Pulse Resp BP Sys/Jalloh Pulse Ox Last 24 Hr 97.0 F-98.6 F 70-103 17-20 107-135/59-73 91-98 Discharge Results Procedures and tests throughout hospitalization: Pending Orders 12/02/16 16:46 Blood Culture Stat Labs on day of discharge: Preliminary micro results at discharge 12/02/16 16:46 Blood Culture - Preliminary Blood No growth at 1 day 12/02/16 16:50 Blood Culture - Preliminary Blood No growth at 1 day DS: Provider Date of admission: 12/03/16 13:56 Primary care physician: . No PCP Attending physician on admission: Lefty Adams DO Consults: 12/02/16 16:44 Consult to Case Mgmt/Social Srvs [CONS] Routine Reason for Case Mgmt/Social Srvs: Discharge Planning 12/02/16 18:38 Consult to Dietitian [CONS] Routine Reason for Dietitian: Dietary Consult 12/02/16 18:42 Consult to Pastoral Services [CONS] Routine Comment: Pastoral Screen: Request Job Recruiter Visit 12/02/16 21:31 Consult to Physician [CONS] Routine Comment: chf, cardiomegaly Consulting Provider: Cardiology - [facility] Person Notified: [employer] Date Notified: 12/03/16 Time Notified: 08:15 Discharging clinician: Lefty Adams DO
--- NOTE | 2016-12-05 11:12 | Cardiology Progress Note ---
Mike Mack Vanessa, RN, am scribing for, and in the presence of, Flavio Leija MD 11:11. Assessment and Plan - Time spent with patient Time spent with patient: Greater than 30 minutes (1) Congestive heart failure Status: Acute Assessment and plan: This appears to be a progressing chronic component. Chest x-rays have revealed progressive right pleural effusion. (2) Cardiomegaly Status: Chronic Assessment and plan: Cardiomegaly and secondary to right atrial, left atrial, and right ventricular enlargement. (3) Right lower lobe pneumonia Status: Acute Assessment and plan: She has been initiated on treatment for pneumonia by primary service. (4) Pleural effusion, right Status: Acute Assessment and plan: Per chest x-ray, this is mild to moderate. Pleural effusion has been progressive since chest x-rays from earlier this year. If needed, Lasix could be increased if she did not respond to treatment with antibiotics and current diuresis. (5) Hypertension Status: Chronic Assessment and plan: Blood pressures have been well controlled. (6) Atrial fibrillation Status: Chronic Assessment and plan: Apparently new onset in August 2016. She is anticoagulated for stroke prevention with low-dose Eliquis. EKG this admission revealed atrial fibrillation. Continue current plan of care. (7) COPD (chronic obstructive pulmonary disease) Status: Chronic Assessment and plan: This appears to be stable at this time. Patient does use continuous O2 at home. (8) History of pulmonary embolus (PE) Status: Chronic Assessment and plan: This appears to be stable. (9) Nonrheumatic tricuspid valve regurgitation Status: Chronic Assessment and plan: Per echo, this is moderate to severe. (10) Pulmonary hypertension Status: Chronic Assessment and plan: Moderate to severe. Patient does have a history of chronic lung disease, but also pulmonary hypertension may be secondary to valve disease. (11) Nonrheumatic mitral valve regurgitation Status: Chronic Assessment and plan: Per echo, this is moderate to severe. Cardiology - PN: Subj Interval history: PRIMARY CUT OFF SAW OPERATOR METAL: DR. MOY Ms. Belle is awake and alert this morning, and she is feeling well. Denies complaint or difficulty overnight. Her son is present with her. Patient and her son report patient ambulated quite a bit around the barreto yesterday afternoon, and patient did well without significant shortness of breath or fatigue. No shortness of breath this morning. No chest pain or other. Afebrile, vital signs stable. Patient reports she is tentatively planned for discharge home today. From a cardiac standpoint, she is stable. She can follow up on with Dr. Moy in clinic in 1 week. Exam (Progress Note) - Constitutional Vitals: Period Temp Pulse Resp BP Sys/Jalloh Pulse Ox Last 24 Hr 97.0 F-98.6 F 70-103 17-22 100-135/51-73 91-98 Exam: General appearance: normal weight, no acute distress HEENT exam: normal inspection, atraumatic Neck exam: normal inspection no JVD. No carotid bruit. Trachea is in midline. Respiratory/lungs exam: clear to auscultation bilaterally good air movement. No wheeze, rales, or rhonchi. Cardiovascular exam: regular rate with slightly irregular rhythm with her atrial fibrillation; no murmur or gallop or rub. No precordial lift. Chest wall exam: nontender GI/Abdominal exam: normal bowel sounds, soft, nontender, no abdominal bruits or pulsatile masses. Extremeties/musculoskeletal: normal inspection without edema or cyanosis. Neurological exam: alert, oriented X3, no focal deficits Psychiatric exam: normal affect, normal mood. Cognitive function is grossly normal. Skin exam: normal color, warm, dry Result/EKG - Labs CBC & BMP: 12/04/16 05:21 12/04/16 05:21 Lab Results: I have reviewed the past 24 hour labs - EKG EKG results: interpreted by me, no acute changes EKG shows: atrial fibrillation Specialty Discharge - Follow Up or Referrals Follow up with: Flavio Leija MD [Physician] - 12/18/16 9:10 am Lefty Adams DO [Physician] - 1 Month IHeladio John Timothy, MD, personally performed the services described in this documentation, ascribed by Nina Mckeon RN in my presence, and it is both accurate and complete .
--- NOTE | 2016-12-10 10:59 | Physician Query Form ---
CLICK EDIT DOCUMENT TO SELECT QUERY ANSWER --> OK --> SIGN Sameera Chavez RN, CCDS Certified Clinical Sales And Support Center Agent W) [phone] (f) [phone] [email or web address] PROVIDERS: Make your selection(s) from the choices in EACH section by typing an "x" and enter comments in the comment section. Please use your independent medical judgment in providing your response. This request does not imply that any particular answer is desired or expected. CLINICAL INDICATORS: (Providers should not edit this section) The medical record indicates that the patient was admitted with CHF, pleural effusion, BNP 555#, EF of 55%, and the patient was treated with PO/IV Lasix. Please provide further specificity regarding CHF. ACUITY: ( ) Acute ( ) Chronic ( x) Acute on Chronic ( ) Clinically unable to determine TYPE: ( ) Systolic (HFrEF - heart failure with reduced systolic function/EF) (x ) Diastolic (HFpEF - heart failure with preserved systolic function/EF) ( ) Combined Systolic/Diastolic ( x) Other, please specify:valvular ( ) Clinically unable to determine ( ) The patient does NOT have CHF COMMENTS: PLEASE ALSO DOCUMENT RESPONSE IN PROGRESS NOTES AND/OR DISCHARGE SUMMARY Use of terms such as suspected, likely, or probable (associated with a specific diagnosis that is being evaluated, monitored, or treated as if it exists) are acceptable and can be restated in the discharge summary if not ruled out. MTDD
--- NOTE | 2016-12-10 11:00 | Physician Query Form ---
CLICK EDIT DOCUMENT TO SELECT QUERY ANSWER --> OK --> SIGN Sameera Chavez RN, CCDS Certified Clinical Associate Software Engineer W) [phone] (f) [phone] [email or web address] PROVIDERS: Make your selection(s) from the choices in EACH section by typing an "x" and enter comments in the comment section. Please use your independent medical judgment in providing your response. This request does not imply that any particular answer is desired or expected. CLINICAL INDICATORS: (Providers should not edit this section) The medical record indicates that the patient was admitted with CHF, "pt is on home O2", the patient was admitted and placed on 2 liters per NC. Based on the above, could you clarify the appropriate diagnosis, if significant , that supports the above abnormalities and additional evaluation, monitoring, and/or treatment rendered: ( ) patient is being treated or monitored for chronic respiratory failure ( ) patient is not being treated or monitored for chronic respiratory failure ( ) Other, please specify: ( ) Clinically unable to determine COMMENTS: PLEASE ALSO DOCUMENT RESPONSE IN PROGRESS NOTES AND/OR DISCHARGE SUMMARY Use of terms such as suspected, likely, or probable (associated with a specific diagnosis that is being evaluated, monitored, or treated as if it exists) are acceptable and can be restated in the discharge summary if not ruled out. MTDD
== END 2016-12-05 10:46 | disposition home health service (06) | DRG 291 ==
LOC: N.EDINP 14:47 → N.ED 14:47 → N.EDINP 18:25 → N.2E 18:33
PROVIDERS: ADMIT Family Medicine; ATTEND Family Medicine